=== PATIENT | male | born 1960 | race Hispanic/Latino ===

== ENCOUNTER 2025-03-04 10:12 | Emergency (ER) | payer SELFPAY ==
[2025-03-04 10:46] LABS: #Basophils 0.04 10x3/uL (0.0-0.2); #Eosinophils 0.39 10x3/uL (0.0-0.7); #Monocytes 0.42 10x3/uL (0.11-0.59); #Neutrophils 3.66 10x3/uL (1.40-6.50); %Basophils 0.6 % (0.0-1.0); %Eosinophils 6.0 % (0.0-10.0); %Lymphocytes 30.7 % (21.0-51.0); %Monocytes 6.4 % (0.0-10.0); %Neutrophils 56.0 % (42.0-75.0); Hematocrit 44.1 % (42.0-52.0); Hemoglobin 14.3 g/dL (14.0-18.0); Mean Corpuscular Hemoglobin 29.7 pg (27.0-31.0); Mean Corpuscular Volume 91.5 fL (78.0-98.0); Platelet Count 222 10x3/uL (130-400); Red Blood Cell (RBC) Count 4.82 mill/uL (4.70-6.10); White Blood Cell (WBC) Count 6.54 10x3/uL (4.8-10.8)
[2025-03-04 11:14] LABS: ALT (SGPT) 24 U/L (Less than 45); AST (SGOT) 29 U/L (11-34); Albumin 4.2 g/dL (3.1-4.5); Alkaline Phosphatase 79 U/L (40-110); Anion Gap 14 mmol/L (10-20); BUN (Urea Nitrogen) 24 mg/dL (8.4-25.7); Bilirubin, Total 0.3 mg/dL (0.3-1.2); Calc. Creatinine Clearance 0 mL/min (70-130); Calcium 8.8 mg/dL (7.8-10.44); Carbon Dioxide 25 mmol/L (23-31); Chloride 106 mmol/L (98-107); Globulin 3.6 g/dL (2.4-3.5); Glucose 99 mg/dL (80-115); Potassium 4.0 mmol/L (3.5-5.1); Sodium 141 mmol/L (136-145)
== END 2025-03-04 13:30 | disposition home or self-care (01) ==
LOC: ERS 10:12
DX: R60.0 Localized edema (principal)
CPT/HCPCS: 36415; 80053; 83880; 85025